=== PATIENT | female | born 1985 | race Hispanic/Latino ===

== ENCOUNTER 2021-02-08 05:34 | Inpatient (IN) | payer BC ==
[2021-02-08] MEDS ORDERED: Bicitra 30 ML UDCUP PO PRN (06:35)
[2021-02-08] MEDS ORDERED: Ondansetron PF 4 MG/2 ML Vial IVP PRN ×3 (06:35→12:03)
[2021-02-08] MEDS ORDERED: Promethazine HCl 25 MG/ML VIAL IM PRN ×2 (06:35→09:44)
[2021-02-08] MEDS ORDERED: hydrALAZINE 20 MG/ML VIAL SLOW IVP PRN ×2 (06:35→12:03)
[2021-02-08] MEDS ORDERED: Famotidine/PF 20 mg/2ml Vial SLOW IVP PRN (06:35)
[2021-02-08] MEDS ORDERED: ceFAZolin 2 GM/Dextrose 50 ML 2 GM in Premix Bag 1 BAG IVPB SCH (06:45)
[2021-02-08 06:46] VITALS: BMI 34.0
[2021-02-08 06:55] LABS: Hemoglobin 12.6 g/dL (12.0-15.5); Red Blood Cell (RBC) Count 3.83 10x6/uL (3.90-5.03); White Blood Cell (WBC) Count 7.7 10x3/uL (3.5-10.5)
[2021-02-08 06:56] LABS: Mean Corpuscular HGB CONC 35.5 g/dL (32.0-36.0); Mean Corpuscular Hemoglobin 32.9 pg (27.0-33.0); Mean Corpuscular Volume 92.7 fl (81.6-98.3); Mean Platelet Volume 12.5 fl (7.4-10.4); Platelet Count 158 10x3/uL (150-450); RBC Distribution Width 13.1 % (11.5-14.5)
[2021-02-08] MEDS ORDERED: Oxytocin 10 UNITS/ML VIAL ONE (07:04)
[2021-02-08] MEDS ORDERED: Morphine PF 10 MG/10 ML VIAL ONE (07:04)
[2021-02-08] MEDS ORDERED: PHENYLEPHRINE-NS 100 MCG/ML 10 ML SYRINGE ONE (07:04)
[2021-02-08] MEDS ORDERED: EPINEPHrine 1 MG/ML AMP ONE (07:06)
[2021-02-08] MEDS ORDERED: Metoclopramide HCl 10 MG/2 ML VIAL ONE (07:11)
[2021-02-08] MEDS ORDERED: Ondansetron PF 4 MG/2 ML Vial ONE (07:11)
[2021-02-08] MEDS ORDERED: Ketorolac Tromethamine 30 MG/ML VIAL ONE (07:12)
[2021-02-08 07:28] LABS: Hep B Surf Ag Non-Reactive S/CO (NonReactive)
[2021-02-08 07:30] LABS: Syphilis Antibody Nonreactive (Nonreactive); Syphilis Antibody Index 0.05 S/CO (<1.00 Non-Reactive)
[2021-02-08] MEDS ORDERED: Methylergonovine 0.2 MG/ML VIAL IM PRN (07:31)
[2021-02-08] MEDS ORDERED: Misoprostol 200 MCG TAB PR PRN (07:31)
[2021-02-08] MEDS ORDERED: Diphenoxylate HCl/Atropine Tablet PO PRN (07:31)
[2021-02-08] MEDS ORDERED: Carboprost 250 MCG/ML AMP IM PRN (07:31)
[2021-02-08] MEDS ORDERED: NS w/ Oxytocin 30 units 500 ML IV SCH (07:45)
[2021-02-08 07:46] LABS: HBSAg Index 0.19 S/CO (0-0.99)
[2021-02-08] MEDS ORDERED: Phenylephrine 10 MG/ML VIAL ONE (08:24)
[2021-02-08] MEDS ORDERED: Methylergonovine 0.2 MG/ML VIAL ONE (08:42)
[2021-02-08] MEDS ORDERED: L&D-Morphine 4 MG/ML VIAL SLOW IVP PRN (09:44)
[2021-02-08] MEDS ORDERED: HYDROmorphone 2 MG/ML VIAL SLOW IVP PRN (09:44)
[2021-02-08] MEDS ORDERED: Naloxone HCl 0.4 mg/ml Vial IVP PRN ×2 (09:44)
[2021-02-08] MEDS ORDERED: Ondansetron HCl/PF 4 MG/2 ML Vial IVP PRN (09:44)
[2021-02-08] MEDS ORDERED: diphenhydrAMINE 50 MG/ML VIAL IVP PRN (09:44)
[2021-02-08] MEDS ORDERED: Naloxone HCl 0.4 mg/ml Vial IV PRN (09:44)
[2021-02-08] MEDS ORDERED: Meperidine HCl/PF 25 MG/ML VIAL SLOW IVP PRN (09:44)
[2021-02-08] MEDS ORDERED: Hydrocerin (Eucerin) Cream 120 gm Jar TOP PRN (09:44)
[2021-02-08] MEDS ORDERED: Promethazine HCl 25 MG SUPP PR PRN (09:44)
[2021-02-08] MEDS ORDERED: Communication Order-Pharmacy FS SCH (09:45)
[2021-02-08] MEDS ORDERED: Boostrix 0.5 ML (Tdap) VIAL IM ONE (12:03)
[2021-02-08] MEDS ORDERED: Simethicone Chewable 80 MG TAB PO PRN (12:03)
[2021-02-08] MEDS ORDERED: Lanolin Ointment 7 GM TUBE TOP PRN (12:03)
[2021-02-08] MEDS ORDERED: diphenhydrAMINE 25 MG CAP PO PRN (12:03)
[2021-02-08] MEDS ORDERED: Bisacodyl 10 MG SUPP PR PRN (12:03)
[2021-02-08] MEDS ORDERED: Tranexamic Acid 1,000 MG/10 ML VIAL ONE (13:03)
[2021-02-08] MEDS ORDERED: Ketorolac Tromethamine 30 MG/ML VIAL IVP PRN (14:30)
[2021-02-08] MEDS: Docusate Calcium (SURFAK) 240 MG CAP PO SCH (21:06)
[2021-02-08] MEDS: Ferrous Sulfate 325 MG TAB PO SCH (21:06)
[2021-02-08] MEDS ORDERED: HYDROcodone/Acetaminophen 5/325 mg Tablet PO PRN ×2 (23:59)
[2021-02-09 05:22] LABS: Hemoglobin 8.9 g/dL (12.0-15.5); Mean Corpuscular HGB CONC 34.2 g/dL (32.0-36.0); Mean Corpuscular Hemoglobin 32.8 pg (27.0-33.0); Mean Corpuscular Volume 95.9 fl (81.6-98.3); Mean Platelet Volume 12.5 fl (7.4-10.4); Platelet Count 140 10x3/uL (150-450); Red Blood Cell (RBC) Count 2.71 10x6/uL (3.90-5.03); White Blood Cell (WBC) Count 9.8 10x3/uL (3.5-10.5)
[2021-02-09] MEDS ORDERED: Acetaminophen 325 MG TAB PO PRN (07:03)
[2021-02-09] MEDS: Docusate Calcium (SURFAK) 240 MG CAP PO SCH ×2 (10:45→22:03)
[2021-02-09] MEDS: Prenatal Vitamin 1 TAB PO SCH (10:45)
[2021-02-09] MEDS: Ibuprofen 800 MG TAB PO SCH ×2 (10:45→17:15)
[2021-02-09] MEDS: Polyethylene Glycol 3350 17 GM Packet PO SCH (10:45)
[2021-02-09] MEDS: Ferrous Sulfate 325 MG TAB PO SCH ×2 (10:45→22:03)
[2021-02-10] MEDS: Ibuprofen 800 MG TAB PO SCH ×2 (01:28→09:04)
[2021-02-10 08:03] VITALS: BP 109/60; TEMP 98.4
[2021-02-10] MEDS: Prenatal Vitamin 1 TAB PO SCH (09:04)
[2021-02-10] MEDS: Ferrous Sulfate 325 MG TAB PO SCH (09:04)
[2021-02-10] MEDS: Docusate Calcium (SURFAK) 240 MG CAP PO SCH (09:04)
[2021-02-10] MEDS: Polyethylene Glycol 3350 17 GM Packet PO SCH (09:04)
[2021-02-13] MEDS ORDERED: Ibuprofen 800 MG TAB PO SCH (22:00)
== END 2021-02-10 12:20 | disposition home or self-care (01) | DRG 787 ==
LOC: CSHLD 05:34 → CSHPP 11:40
PROVIDERS: ADMIT Family Medicine; ATTEND Family Medicine
PROC: 10D00Z1 Extraction of Products of Conception, Low, Open Approach (ICD-10-PCS; principal; 2021-02-08)
DX: O34.211 Maternal care for low transverse scar from previous cesarean delivery (principal); O98.82 Other maternal infectious and parasitic diseases complicating childbirth; O72.1 Other immediate postpartum hemorrhage; Z3A.39 39 weeks gestation of pregnancy; Z37.0 Single live birth; O24.420 Gestational diabetes mellitus in childbirth, diet controlled; O99.214 Obesity complicating childbirth; B95.1 Streptococcus, group B, as the cause of diseases classified elsewhere; O99.892 Other specified diseases and conditions complicating childbirth; N73.6 Female pelvic peritoneal adhesions (postinfective)
CPT/HCPCS: 36415; 51702; 85027; 86780; 86850; 86900; 86901; 87340; J0171; J0690; J1885; J2210; J2274; J2370; J2405; J2765